=== PATIENT | male | born 1990 | race Caucasian/White ===

== ENCOUNTER → 2017-10-10 | Day surgery (SDC) | payer OTHER ==
[~2017-10-10] VITALS: Ht 172.7 cm; Wt 115.7 kg
--- NOTE | 2017-10-10 14:01 | Operative Report ---
Operative/Inv Procedure Report Surgery Date: 10/10/17 Name of Procedure: Left knee arthroscopy, partial lateral meniscectomy, partial medial meniscectomy Pre-Operative Diagnosis: Left knee lateral meniscus tear Post-Operative Diagnosis: Left knee lateral meniscus tear, medial meniscus tear Estimated Blood Loss: [place]ita Surgeon/Marketing Development Representative: Elias Anderson MD Anesthesia: laryngeal mask airway Complications: None Condition: Stable to PACU Operative Indication: This is a 27-year-old male who injured his left knee squatting. MRI showed a lateral meniscus tear. Risks and benefits of the procedure were discussed with the patient at length. Risks include but are not limited to nerve damage, muscle damage, infection, blood loss, blood clots, pulmonary embolus, and even . The patient agreed to the above risks and elected to proceed with surgery. Operative/Procedure Note Note: The patient was placed supine on the operating room table. A tourniquet was applied. The lower extremity was prepped and draped in normal sterile fashion. A timeout was performed before the incision. The site marking was visualized before incision. After the leg was prepped and draped, an Esmarch was used to exsanguinate the extremity. The tourniquet was inflated. A standard inferolateral portal was established with an 11 blade. The camera was inserted. A medial portal was established with a spinal needle and an 11 blade. The diagnostic arthroscopy was then performed which showed the above findings. A shaver was used to debride the anterior horn of the medial meniscus. A combination of an upbiter as well as a shaver was used to debride the body and posterior horn of the lateral meniscus. The camera was switched to the medial portal and further debridement with an upbiter was completed through the lateral portal. A curved shaver was then used to complete debridement of the posterior horn of the lateral meniscus. The knee was copiously irrigated. The portal sites were closed with 3-0 nylon suture in a simple interrupted fashion. The knee was injected with 10 mL of 0.25% Marcaine with epinephrine. A dry sterile dressing was applied and the patient was transferred to PACU in stable condition. Findings: Tear of the anterior horn medial meniscus. Medial compartment articular cartilage intact. ACL intact. PCL intact. Femoral joint articular cartilage with grade 2 chondrosis changes of the far medial facet of the patella. Otherwise intact. Lateral meniscus with extensive macerated tearing extending from the body to the posterior horn. The tear was complete at the popliteus hiatus. Grade 3 chondral changes of the lateral femoral condyle. Grade 2 chondral changes of the lateral tibial plateau. No loose bodies noted.
== END ==
LOC: STS 02:36
DX: S83.282A Other tear of lateral meniscus, current injury, left knee, initial encounter (principal); S83.242A Other tear of medial meniscus, current injury, left knee, initial encounter; Y93.B9 Activity, other involving muscle strengthening exercises; E66.9 Obesity, unspecified
CPT/HCPCS: J0690; J2250